=== PATIENT | female | born 1960 | race Caucasian/White ===

== ENCOUNTER 2019-02-24 21:40 | Observation (INO) ==
[2019-02-25] MEDS ORDERED: ACETAMINOPHEN 325 MG TABLET PO PRN (00:55)
[2019-02-25] MEDS ORDERED: ONDANSETRON 4 MG/2 ML VIAL IV PRN (00:55)
[2019-02-25 01:33] LABS: Basophils # 0.1 10*3/uL (0.0-0.2); Eosinophils # 0.3 10*3/uL (0.0-0.87); Eosinophils % 3.5 % (0.00-10.9); Hematocrit 38.3 VOL% (35.7-47.0); Hemoglobin 11.7 GM/DL (12.0-16.0); Immature Granulocytes % 0.2 %; Immature Granulocytes Absolute 0.02 #; Lymphocytes # 5.3 10*3/uL (1.4-4.0); Lymphocytes % 53.6 % (21.3-54.2); Mean Corpuscular HGB Conc 30.5 GM/DL (32-36); Mean Corpuscular Volume 85.9 FL (87-102); Mean Platelet Volume 9.4 FL (9.6-12.0); Monocytes % 10.3 % (1.7-12.7); Neutrophils % 31.4 % (38.7-73.9); Platelet Count 320 T/CUMM (130-400); Red Blood Count 4.46 MC/CUMM (3.8-5.5); Red Cell Distribution Width 14.4 % (9.3-17.3); White Blood Count 9.8 T/CUMM (4-12)
[2019-02-25 01:53] LABS: Osmolality,Calculated 290.4 MOS/KG (273-304); Risk Ratio 4.66; VLDL CHOLESTEROL 35.6 MG/DL
[2019-02-25 01:54] LABS: Band Neutrophils 2 % (0-10); Eosinophils 4 % (0-10); Lymphocytes 54 % (20-55); Segmented Neutrophils 34 % (50-85)
[2019-02-25 01:55] LABS: Platelet Estimate Adequate; Total Cells Counted 100
[2019-02-25] MEDS: SODIUM CHLOR 0.9% KCL 40 MEQ 40 MEQ/1,000 ML BAG IV SCH ×2 (01:58→15:54)
[2019-02-25 02:02] LABS: Albumin 3.8 G/DL (3.4-5.0); Bilirubin,Total 0.5 MG/DL (0.2-1.0); Osmolality,Calculated 286.7 MOS/KG (273-304); Thyroid Stimulating Hormone 0.098 uIU/ml (0.358-3.74); Total Protein 8.1 G/DL (6.4-8.3)
[2019-02-25] MEDS: MORPHINE 4 MG/1 ML VIAL IV PRN ×3 (02:16→23:26)
[2019-02-25] MEDS: NICOTINE 14 MG/24 HR PATCH TRANSDERM SCH ×2 (02:17→08:48)
[2019-02-25] MEDS ORDERED: NITROGLYCERIN SL 0.4 MG TABLET SL ONE (03:33)
[2019-02-25] MEDS: NITROGLYCERIN SL 0.4 MG TABLET SL PRN ×2 (03:36→03:39)
[2019-02-25 03:50] LABS: Basophils # 0.1 10*3/uL (0.0-0.2); Basophils % 0.9 % (0.0-0.8); Eosinophils # 0.3 10*3/uL (0.0-0.87); Eosinophils % 3.6 % (0.00-10.9); Hematocrit 33.4 VOL% (35.7-47.0); Hemoglobin 10.5 GM/DL (12.0-16.0); Immature Granulocytes % 0.1 %; Immature Granulocytes Absolute 0.01 #; Lymphocytes # 3.9 10*3/uL (1.4-4.0); Lymphocytes % 51.3 % (21.3-54.2); Mean Corpuscular HGB Conc 31.4 GM/DL (32-36); Mean Corpuscular Volume 84.8 FL (87-102); Mean Platelet Volume 9.7 FL (9.6-12.0); Monocytes % 10.7 % (1.7-12.7); Neutrophils % 33.4 % (38.7-73.9); Platelet Count 276 T/CUMM (130-400); Red Blood Count 3.94 MC/CUMM (3.8-5.5); Red Cell Distribution Width 14.3 % (9.3-17.3); White Blood Count 7.6 T/CUMM (4-12)
[2019-02-25 04:34] LABS: Eosinophils 5 % (0-10); Lymphocytes 54 % (20-55); Platelet Estimate Adequate; Segmented Neutrophils 32 % (50-85); Total Cells Counted 100
[2019-02-25 04:35] LABS: Hypochromasia 1+
[2019-02-25 08:13] LABS: Calcium 8.1 MG/DL (8.5-10.1); Osmolality,Calculated 288.6 MOS/KG (273-304)
[2019-02-25] MEDS: ENOXAPARIN 40 MG/0.4 ML SYRINGE SUBCUT SCH (08:47)
[2019-02-25] MEDS: amLODIPine 10 MG TABLET PO SCH (08:48)
[2019-02-25] MEDS: ASPIRIN EC 81 MG TABLET PO SCH (08:48)
[2019-02-25] MEDS: PANTOPRAZOLE 40 MG TABLET PO SCH (08:48)
[2019-02-25 09:39] LABS: Apearance,Urine CLEAR (Clear); Bilirubin,Urine Negative (Negative); Blood, Urine Negative (Negative); Glucose,Urine (UA) Negative (Negative); Ketones,Urine Negative (Negative); Mucus,Urine Occasional /LPF (Occasional); Nitrite,Urine Negative (Negative); Protein,Urine Negative; RBC,Urine <1 /HPF (0-4); Squamous Epithelial Cell,Urine Occasional /HPF (0-10); Urine Color Yellow (Yellow); Urine Specific Gravity 1.006 (1.001-1.035); WBC,Urine 1 /HPF (0-6)
[2019-02-25] MEDS ORDERED: MAGNESIUM SULF RIDER 2 GM in PREMIX 1 EACH IV PRN (10:26)
[2019-02-25] MEDS ORDERED: diphenhydrAMINE CAP 25 MG CAPSULE PO ONE (10:26)
[2019-02-25] MEDS ORDERED: DIAZEPAM 5 MG TABLET PO ONE (10:26)
[2019-02-25] MEDS ORDERED: VERAPAMIL 5 MG/2 ML VIAL ONE (10:50)
[2019-02-25] MEDS ORDERED: NITROGLYCERIN DRIP 50 MG/250 ML BOTTLE IV ONE (10:50)
[2019-02-25] MEDS ORDERED: LIDOCAINE 1% 20 ML VIAL ONE (10:50)
[2019-02-25] MEDS ORDERED: MIDAZOLAM 2 MG/2 ML VIAL ONE (10:58)
[2019-02-25] MEDS ORDERED: fentaNYL 100 MCG/2 ML VIAL ONE (10:59)
[2019-02-25] MEDS: ALBUTEROL/IPRATROPIUM 3 ML NEB RESP TX SCH ×2 (15:48→19:25)
[2019-02-25] MEDS ORDERED: CYCLOBENZAPRINE 10 MG TABLET PO PRN (16:05)
[2019-02-25] MEDS: LEVOTHYROXINE 75 MCG TABLET PO SCH (17:07)
[2019-02-25] MEDS ORDERED: CITALOPRAM 40 MG TABLET PO SCH (21:00)
[2019-02-25] MEDS ORDERED: AMITRIPTYLINE 25 MG TABLET PO SCH (21:00)
[2019-02-26] MEDS: ALBUTEROL/IPRATROPIUM 3 ML NEB RESP TX SCH ×5 (00:32→13:50)
[2019-02-26] MEDS: SODIUM CHLOR 0.9% KCL 40 MEQ 40 MEQ/1,000 ML BAG IV SCH (05:32)
[2019-02-26 06:02] LABS: Basophils % 0.5 % (0.0-0.8); Eosinophils # 0.1 10*3/uL (0.0-0.87); Eosinophils % 2.6 % (0.00-10.9); Hematocrit 33.9 VOL% (35.7-47.0); Hemoglobin 10.6 GM/DL (12.0-16.0); Immature Granulocytes % 0.2 %; Immature Granulocytes Absolute 0.01 #; Lymphocytes # 2.5 10*3/uL (1.4-4.0); Lymphocytes % 45.2 % (21.3-54.2); Mean Corpuscular HGB Conc 31.3 GM/DL (32-36); Mean Corpuscular Volume 86.7 FL (87-102); Mean Platelet Volume 9.7 FL (9.6-12.0); Monocytes % 9.7 % (1.7-12.7); Neutrophils % 41.8 % (38.7-73.9); Platelet Count 258 T/CUMM (130-400); Red Blood Count 3.91 MC/CUMM (3.8-5.5); Red Cell Distribution Width 14.2 % (9.3-17.3); White Blood Count 5.5 T/CUMM (4-12)
[2019-02-26 06:26] LABS: Calcium 8.5 MG/DL (8.5-10.1); Osmolality,Calculated 286.7 MOS/KG (273-304)
[2019-02-26] MEDS ORDERED: predniSONE 20 MG TABLET PO SCH (09:00)
[2019-02-26] MEDS: amLODIPine 10 MG TABLET PO SCH (09:39)
[2019-02-26] MEDS: MORPHINE 4 MG/1 ML VIAL IV PRN (10:34)
[2019-02-26] MEDS ORDERED: LIDOCAINE 1% 20 ML VIAL ONE (12:22)
[2019-02-26] MEDS ORDERED: MIDAZOLAM 2 MG/2 ML VIAL ONE ×2 (12:22→12:48)
[2019-02-26] MEDS ORDERED: NITROGLYCERIN DRIP 50 MG/250 ML BOTTLE IV ONE (12:22)
[2019-02-26] MEDS ORDERED: fentaNYL 100 MCG/2 ML VIAL ONE (12:23)
[2019-02-26] MEDS ORDERED: VERAPAMIL 5 MG/2 ML VIAL ONE (12:23)
[2019-02-26] MEDS ORDERED: PROMETHAZINE 25 MG/1 ML VIAL ONE (12:57)
[2019-02-26] MEDS: ENOXAPARIN 40 MG/0.4 ML SYRINGE SUBCUT SCH (14:03)
[2019-02-26] MEDS: NICOTINE 14 MG/24 HR PATCH TRANSDERM SCH (14:18)
[2019-02-26] MEDS: PANTOPRAZOLE 40 MG TABLET PO SCH (14:18)
[2019-02-26] MEDS: LEVOTHYROXINE 75 MCG TABLET PO SCH (14:18)
[2019-02-26] MEDS: ASPIRIN EC 81 MG TABLET PO SCH (14:18)
[2019-02-26 16:00] VITALS: BP 136/68
== END 2019-02-26 16:25 | disposition home or self-care (01) ==
LOC: N.2E → SUATTDRO 23:41
PROVIDERS: ADMIT Internal Medicine; ATTEND Internal Medicine
PROC: CLCCHCL (ICD-10-PCS; 2019-02-26 14:45)